=== PATIENT | male | born 1950 | race Caucasian/White ===

== ENCOUNTER 2016-04-06 20:07 | Inpatient (IN) | payer OTHER ==
[~2016-04-06] VITALS: Ht 172.7 cm; Wt 89.3 kg
[~2016-04-06 20:07] MED LIST: COMBIVENT RESPIM4 GM IH; DUONEB 2.5-0.5 M3 ML AEROSOL; HUMALOG100 UNIT/1 SC; LANTUS 10100 UNITS/ SC; LO-DOSE ASPIRIN81 M2 PO; LOPRESSOR50 MG PO; PRAVACHOL40 MG PO; QVAR 40 MCG IN7.3 GM IH; SINGULAIR10 MG PO; TRAZODONE HCL50 MG PO; XARELTO15 MG PO
[2016-04-06 21:52] LABS: HEMATOCRIT 45.1 % (38.0-50.0); MCV 93.8 FL (86-99); MEAN PLAT.VOLUME 9.5 uM^3 (9.0-12.4); PLATELET COUNT 212 K/uL (156-360); RBC DIS.WIDTH-CV 13.2 % (11.8-14.6); RBC DIS.WIDTH-SD 43.6 % (39-53); RED BLOOD COUNT 4.81 M/uL (4.00-5.50); WHITE BLOOD COUNT 7.3 K/uL (4.1-10.2)
[2016-04-06 22:01] LABS: CHLORIDE 110 mEq/L (99-109); POTASSIUM 4.5 mEq/L (3.7-5.4); SODIUM 143 mEq/L (136-147)
[2016-04-06 22:03] LABS: GLUCOSE 122 mg/dL (70-99)
[2016-04-06 22:04] LABS: ANION GAP 9 MEQ/L (2-14)
[2016-04-06 22:07] LABS: GFR ESTIMATE (CALCULATED) 36 mL/min/
[2016-04-06 22:08] LABS: UREA NITROGEN (BUN) 23 mg/dL (9-23)
[2016-04-06 22:13] LABS: TROP-I INTERPRETATION NEGATIVE; TROPONIN-I 0.04 ng/mL (0.0-0.30)
[2016-04-06] MEDS ORDERED: ASPERCREME 1035.4 GM TP (22:34)
[2016-04-06] MEDS ORDERED: PRILOSEC20 MG PO (22:34)
[2016-04-06] MEDS ORDERED: LEVAQUIN750 MG PO (22:36)
[2016-04-07 04:51] VITALS: BP 126/64
[2016-04-07 05:14] LABS: TROP-I INTERPRETATION NEGATIVE
[2016-04-07 08:49] VITALS: BP 140/74
[2016-04-07 10:52] LABS: TROP-I INTERPRETATION NEGATIVE
[2016-04-07 11:30] VITALS: BP 151/75
[2016-04-07 12:08] LABS: POINT-OF-CARE METER ID UU13113831
[2016-04-07 15:16] VITALS: BP 158/61
[2016-04-07 20:00] VITALS: BP 178/84
[2016-04-08 00:50] VITALS: BP 156/70
[2016-04-08 07:14] VITALS: BP 154/72
[2016-04-08 07:47] VITALS: BP 152/72
[2016-04-08 08:39] LABS: POINT-OF-CARE METER ID UU13113831
[2016-04-08 11:29] VITALS: BP 139/81
[2016-04-08 12:28] LABS: POINT-OF-CARE METER ID UU13113831
[2016-04-08 21:25] VITALS: BP 129/67
[2016-04-09 00:40] VITALS: BP 108/63
[2016-04-09 05:37] VITALS: BP 122/65
[2016-04-09 06:59] LABS: INTER. NORMALIZED RATIO 1.1; PROTHROMBIN TIME 10.9 (9.2-11.2); PTT 28.1 (25-32)
[2016-04-09 07:53] LABS: POINT-OF-CARE METER ID UU13113781
[2016-04-09 09:00] VITALS: BP 119/66
[2016-04-09 09:13] LABS: EOSINOPHIL (%) 1.1 % (0-5); EOSINOPHIL COUNT 0.1 K/uL (0-0.3); HEMATOCRIT 41.3 % (38.0-50.0); IMMATURE GRANULOCYTE (%) 0.4 % (0.0-0.7); LYMPHOCYTE COUNT 1.6 K/uL (1.0-2.8); MCH 30.6 PG (29.0-34.0); MCHC 32.7 G/DL (30.0-36.0); MCV 93.7 FL (86-99); MONOCYTE (%) 7.4 % (3-12); MONOCYTE COUNT 0.7 K/uL (0-0.8); NEUTROPHIL (%) 73.1 % (45-76); NEUTROPHIL COUNT 6.7 K/uL (1.8-6.4); PLATELET COUNT 208 K/uL (156-360); RBC DIS.WIDTH-CV 13.2 % (11.8-14.6); RBC DIS.WIDTH-SD 45.4 % (39-53); RED BLOOD COUNT 4.41 M/uL (4.00-5.50); WHITE BLOOD COUNT 9.2 K/uL (4.1-10.2)
[2016-04-09 09:24] LABS: ANION GAP 6 MEQ/L (2-14); CHLORIDE 107 MEQ/L (99-109); GFR ESTIMATE (CALCULATED) 38 mL/min/; POTASSIUM 4.5 MEQ/L (3.7-5.4); SAMPLE HEMOLYSIS CHECK 0; SAMPLE ICTERIC CHECK 0; SAMPLE LIPEMIA CHECK 0; SODIUM 138 MEQ/L (136-147); UREA NITROGEN (BUN) 25 mg/dL (9-23)
[2016-04-09 09:34] LABS: GLUCOSE 225 mg/dL (70-99)
[2016-04-09 10:57] LABS: POINT-OF-CARE METER ID UU13113781
[2016-04-09 11:58] LABS: IRON 101 MCG/DL (35-150)
[2016-04-09 12:00] VITALS: BP 130/75
[2016-04-09 13:06] LABS: FERRITIN 86 NG/ML (22-322)
[2016-04-09 18:46] LABS: INTER. NORMALIZED RATIO 1.1; PROTHROMBIN TIME 11.1 (9.2-11.2); PTT 49.2 (25-32)
[2016-04-09 19:22] VITALS: BP 142/77
[2016-04-09 21:11] LABS: POINT-OF-CARE METER ID UU13113781
[2016-04-09 23:51] VITALS: BP 151/75
[2016-04-10] VITALS (9 sets, daily range): BP systolic 128–160; BP diastolic 65–96
[2016-04-10 06:39] LABS: EOSINOPHIL (%) 2.1 % (0-5); EOSINOPHIL COUNT 0.2 K/uL (0-0.3); HEMATOCRIT 44.2 % (38.0-50.0); IMMATURE GRANULOCYTE (%) 0.8 % (0.0-0.7); IMMATURE GRANULOCYTE COUNT 0.1 K/uL; LYMPHOCYTE COUNT 1.9 K/uL (1.0-2.8); MCH 30.3 PG (29.0-34.0); MCHC 32.1 G/DL (30.0-36.0); MCV 94.4 FL (86-99); MEAN PLAT.VOLUME 10.1 uM^3 (9.0-12.4); MONOCYTE (%) 6.9 % (3-12); MONOCYTE COUNT 0.6 K/uL (0-0.8); NEUTROPHIL (%) 67.4 % (45-76); NEUTROPHIL COUNT 5.7 K/uL (1.8-6.4); PLATELET COUNT 231 K/uL (156-360); RBC DIS.WIDTH-CV 13.4 % (11.8-14.6); RBC DIS.WIDTH-SD 46.3 % (39-53); RED BLOOD COUNT 4.68 M/uL (4.00-5.50); WHITE BLOOD COUNT 8.4 K/uL (4.1-10.2)
[2016-04-10 07:43] LABS: ANION GAP 13 MEQ/L (2-14); CHLORIDE 108 MEQ/L (99-109); GFR ESTIMATE (CALCULATED) 38 mL/min/; GLUCOSE 145 mg/dL (70-99); POTASSIUM 4.3 MEQ/L (3.7-5.4); SAMPLE HEMOLYSIS CHECK 0; SAMPLE ICTERIC CHECK 0; SAMPLE LIPEMIA CHECK 0; SODIUM 142 MEQ/L (136-147); UREA NITROGEN (BUN) 24 mg/dL (9-23)
[2016-04-10 07:54] LABS: POINT-OF-CARE METER ID UU13113781
[2016-04-10 11:07] LABS: POINT-OF-CARE METER ID UU13113698
[2016-04-10 17:17] LABS: POINT-OF-CARE METER ID UU13113698
[2016-04-10 21:24] LABS: POINT-OF-CARE METER ID UU13113698
[2016-04-11 02:14] VITALS: BP 126/67
[2016-04-11 06:13] LABS: EOSINOPHIL (%) 2.6 % (0-5); EOSINOPHIL COUNT 0.2 K/uL (0-0.3); HEMATOCRIT 42.6 % (38.0-50.0); IMMATURE GRANULOCYTE (%) 0.6 % (0.0-0.7); IMMATURE GRANULOCYTE COUNT 0.1 K/uL; LYMPHOCYTE COUNT 1.3 K/uL (1.0-2.8); MCH 30.2 PG (29.0-34.0); MCHC 32.4 G/DL (30.0-36.0); MCV 93.2 FL (86-99); MEAN PLAT.VOLUME 9.7 uM^3 (9.0-12.4); MONOCYTE (%) 8.1 % (3-12); MONOCYTE COUNT 0.8 K/uL (0-0.8); NEUTROPHIL (%) 74.8 % (45-76); NEUTROPHIL COUNT 6.9 K/uL (1.8-6.4); PLATELET COUNT 208 K/uL (156-360); RBC DIS.WIDTH-CV 13.4 % (11.8-14.6); RBC DIS.WIDTH-SD 45.2 % (39-53); RED BLOOD COUNT 4.57 M/uL (4.00-5.50); WHITE BLOOD COUNT 9.3 K/uL (4.1-10.2)
[2016-04-11 06:39] LABS: ANION GAP 9 MEQ/L (2-14); CHLORIDE 106 MEQ/L (99-109); GFR ESTIMATE (CALCULATED) 40 mL/min/; GLUCOSE 179 mg/dL (70-99); POTASSIUM 4.3 MEQ/L (3.7-5.4); SAMPLE HEMOLYSIS CHECK 0; SAMPLE ICTERIC CHECK 0; SAMPLE LIPEMIA CHECK 0; SODIUM 138 MEQ/L (136-147); UREA NITROGEN (BUN) 20 mg/dL (9-23)
[2016-04-11 07:10] VITALS: BP 137/76
[2016-04-11 11:28] VITALS: BP 119/78
[2016-04-11 16:22] VITALS: BP 134/73
[2016-04-11 19:51] VITALS: BP 137/66
[2016-04-12 00:14] VITALS: BP 141/88
[2016-04-12 04:27] VITALS: BP 127/75
[2016-04-12 06:38] LABS: EOSINOPHIL (%) 2.5 % (0-5); EOSINOPHIL COUNT 0.2 K/uL (0-0.3); IMMATURE GRANULOCYTE (%) 0.9 % (0.0-0.7); IMMATURE GRANULOCYTE COUNT 0.1 K/uL; LYMPHOCYTE COUNT 1.5 K/uL (1.0-2.8); MCH 31.8 PG (29.0-34.0); MCHC 33.6 G/DL (30.0-36.0); MCV 94.6 FL (86-99); MEAN PLAT.VOLUME 10.1 uM^3 (9.0-12.4); MONOCYTE (%) 9.9 % (3-12); MONOCYTE COUNT 0.9 K/uL (0-0.8); NEUTROPHIL (%) 69.3 % (45-76); NEUTROPHIL COUNT 5.9 K/uL (1.8-6.4); PLATELET COUNT 204 K/uL (156-360); RBC DIS.WIDTH-CV 13.3 % (11.8-14.6); RBC DIS.WIDTH-SD 45.9 % (39-53); RED BLOOD COUNT 4.44 M/uL (4.00-5.50); WHITE BLOOD COUNT 8.6 K/uL (4.1-10.2)
[2016-04-12 07:00] LABS: ANION GAP 9 MEQ/L (2-14); CHLORIDE 103 MEQ/L (99-109); GFR ESTIMATE (CALCULATED) 38 mL/min/; GLUCOSE 209 mg/dL (70-99); POTASSIUM 4.3 MEQ/L (3.7-5.4); SAMPLE HEMOLYSIS CHECK 0; SAMPLE ICTERIC CHECK 0; SAMPLE LIPEMIA CHECK 0; SODIUM 139 MEQ/L (136-147); UREA NITROGEN (BUN) 27 mg/dL (9-23)
[2016-04-12 07:49] LABS: POINT-OF-CARE METER ID UU14174216
[2016-04-12 08:22] VITALS: BP 130/72
[2016-04-12 11:06] LABS: POINT-OF-CARE METER ID UU14174216
[2016-04-12 12:13] VITALS: BP 126/73
[2016-04-12] MEDS ORDERED: CLOPIDOGREL75 MG PO (13:33)
[2016-04-12] MEDS ORDERED: LOPRESSOR50 MG PO (13:34)
[2016-04-12] MEDS ORDERED: PRAMIPEXOLE D0.25 MG PO (13:35)
[2016-04-12 15:38] VITALS: BP 131/69
== END 2016-04-12 15:45 | disposition home health service (06) | DRG 247 ==
LOC: EME → EDBD 20:07 → EME 20:07 → EDOF 23:22 → 5WEST 23:22 → 4EAST 04-08 07:50 → 5WEST 04-08 16:10 → 4EAST 04-08 20:18
PROVIDERS: Emergency Medicine; Hospitalist; Internal Medicine; Internal Medicine Cardiovascular Disease; Physician Assistant
PROC: 4A023N7 Measurement of Cardiac Sampling and Pressure, Left Heart, Percutaneous Approach (ICD-10-PCS; principal; 2016-04-08)
PROC: B2111ZZ Fluoroscopy of Multiple Coronary Arteries using Low Osmolar Contrast (ICD-10-PCS; principal; 2016-04-08)
PROC: 027 Heart and Great Vessels, Dilation (ICD-10-PCS; 2016-04-10)
DX: I25.119 Atherosclerotic heart disease of native coronary artery with unspecified angina pectoris (principal); Q89.3 Situs inversus; E11.22 Type 2 diabetes mellitus with diabetic chronic kidney disease; N18.3 Chronic kidney disease, stage 3 (moderate); I48.0 Paroxysmal atrial fibrillation; I12.9 Hypertensive chronic kidney disease with stage 1 through stage 4 chronic kidney disease, or unspecified chronic kidney disease; Z79.4 Long term (current) use of insulin; K21.9 Gastro-esophageal reflux disease without esophagitis; G25.81 Restless legs syndrome; E78.5 Hyperlipidemia, unspecified; J47.9 Bronchiectasis, uncomplicated; Z87.891 Personal history of nicotine dependence; I25.2 Old myocardial infarction
CPT/HCPCS: 71020; 80048; 82728; 82948; 83540; 84466; 84484; 85025; 85027; 85347; 85610; 85730; 93005; 93306; 94640; 94640 76; 94760; 99202; 99281; 99285; C1725; C1769; C1874; C1887; C1894; G0378; J0360; J0583; J1644; J1815; J2060; J2250; J2405; J3010; J7030; J7050

== ENCOUNTER 2016-05-14 11:08 | Inpatient (IN) | payer OTHER ==
[~2016-05-14] VITALS: Ht 172.7 cm; Wt 81.7 kg
[~2016-05-14 11:08] MED LIST changes: +ASPERCREME 1035.4 GM TP; +CLOPIDOGREL75 MG PO; +LEVAQUIN750 MG PO; +PRAMIPEXOLE D0.25 MG PO; +PRILOSEC20 MG PO
[2016-05-14 12:14] LABS: HEMATOCRIT 44.4 % (38.0-50.0); MCHC 32.2 G/DL (30.0-36.0); MCV 93.3 FL (86-99); MEAN PLAT.VOLUME 9.6 uM^3 (9.0-12.4); PLATELET COUNT 265 K/uL (156-360); RBC DIS.WIDTH-CV 12.5 % (11.8-14.6); RBC DIS.WIDTH-SD 43.7 % (39-53); RED BLOOD COUNT 4.76 M/uL (4.00-5.50)
[2016-05-14 12:20] LABS: WHITE BLOOD COUNT 7.9 K/uL (4.1-10.2)
[2016-05-14 12:33] LABS: CHLORIDE 107 mEq/L (99-109); POTASSIUM 5.4 mEq/L (3.7-5.4); SODIUM 136 mEq/L (136-147)
[2016-05-14 12:35] LABS: GLUCOSE 242 mg/dL (70-99)
[2016-05-14 12:37] LABS: ANION GAP 10 MEQ/L (2-14)
[2016-05-14 12:39] LABS: GFR ESTIMATE (CALCULATED) 24 mL/min/
[2016-05-14 12:40] LABS: UREA NITROGEN (BUN) 42 mg/dL (9-23)
[2016-05-14] MEDS ORDERED: LOPRESSOR25 MG PO (14:32)
[2016-05-14] MEDS ORDERED: NOVOLOG 10100 UNITS/ SC (14:35)
[2016-05-14] MEDS ORDERED: MIRAPEX0.125 MG PO (14:38)
[2016-05-14 14:54] LABS: HEMATOCRIT 43.2 % (38.0-50.0); MCH 30.5 PG (29.0-34.0); MCHC 32.4 G/DL (30.0-36.0); MCV 94.1 FL (86-99); MEAN PLAT.VOLUME 9.7 uM^3 (9.0-12.4); PLATELET COUNT 238 K/uL (156-360); RBC DIS.WIDTH-CV 12.6 % (11.8-14.6); RBC DIS.WIDTH-SD 43.6 % (39-53); RED BLOOD COUNT 4.59 M/uL (4.00-5.50)
[2016-05-14 15:05] VITALS: BP 176/79
[2016-05-14 17:04] LABS: POINT-OF-CARE METER ID UU14162513
[2016-05-14 19:43] LABS: HEMATOCRIT 40.6 % (38.0-50.0); MCV 93.5 FL (86-99)
[2016-05-14 20:19] VITALS: BP 165/83
[2016-05-14 21:39] LABS: POINT-OF-CARE METER ID UU14162513
[2016-05-14 22:17] LABS: C DIFF TOXIN NEGATIVE (NEGATIVE)
[2016-05-14 22:18] LABS: PROBE CHECK PASS; SPECIMEN PROCESSING CONTROL PASS
[2016-05-15 00:48] VITALS: BP 147/76
[2016-05-15 03:32] VITALS: BP 150/71
[2016-05-15 06:55] LABS: MCH 30.2 PG (29.0-34.0); MCHC 32.4 G/DL (30.0-36.0); MCV 93.2 FL (86-99); MEAN PLAT.VOLUME 10.1 uM^3 (9.0-12.4); PLATELET COUNT 243 K/uL (156-360); RBC DIS.WIDTH-CV 12.7 % (11.8-14.6); RBC DIS.WIDTH-SD 43.6 % (39-53); WHITE BLOOD COUNT 9.9 K/uL (4.1-10.2)
[2016-05-15 07:18] LABS: ANION GAP 10 MEQ/L (2-14); CHLORIDE 109 MEQ/L (99-109); GFR ESTIMATE (CALCULATED) 32 mL/min/; GLUCOSE 180 mg/dL (70-99); POTASSIUM 4.4 MEQ/L (3.7-5.4); SAMPLE HEMOLYSIS CHECK 0; SAMPLE ICTERIC CHECK 0; SAMPLE LIPEMIA CHECK 0; SODIUM 139 MEQ/L (136-147); UREA NITROGEN (BUN) 32 mg/dL (9-23)
[2016-05-15 07:41] VITALS: BP 120/65
[2016-05-15 07:53] LABS: POINT-OF-CARE METER ID UU14162513
[2016-05-15 10:37] VITALS: BP 135/77
[2016-05-15 13:03] LABS: POINT-OF-CARE METER ID UU13113700
[2016-05-15 16:32] VITALS: BP 141/69
[2016-05-15 17:11] LABS: POINT-OF-CARE METER ID UU13113831
[2016-05-15 20:07] LABS: HEMATOCRIT 37.9 % (38.0-50.0); MCV 93.3 FL (86-99)
[2016-05-15 20:10] VITALS: BP 152/69
[2016-05-15 21:36] LABS: POINT-OF-CARE METER ID UU14162513
[2016-05-16] VITALS (7 sets, daily range): BP systolic 137–175; BP diastolic 60–80
[2016-05-16 08:30] LABS: POINT-OF-CARE METER ID UU14162513
[2016-05-16 09:40] LABS: ANION GAP 10 MEQ/L (2-14); CHLORIDE 107 MEQ/L (99-109); GFR ESTIMATE (CALCULATED) 29 mL/min/; GLUCOSE 208 mg/dL (70-99); POTASSIUM 4.9 MEQ/L (3.7-5.4); SAMPLE HEMOLYSIS CHECK 0; SAMPLE ICTERIC CHECK 0; SAMPLE LIPEMIA CHECK 0; SODIUM 141 MEQ/L (136-147); UREA NITROGEN (BUN) 25 mg/dL (9-23)
[2016-05-16 10:07] LABS: MCV 94.1 FL (86-99)
[2016-05-16 12:12] LABS: POINT-OF-CARE METER ID UU13113831
[2016-05-16 17:29] LABS: POINT-OF-CARE METER ID UU13113831
[2016-05-16 19:36] LABS: MCV 93.4 FL (86-99)
[2016-05-17 05:27] VITALS: BP 126/59
[2016-05-17 09:00] VITALS: BP 107/73
[2016-05-17 09:27] LABS: HEMATOCRIT 44.7 % (38.0-50.0); MCV 92.2 FL (86-99)
[2016-05-17 12:00] VITALS: BP 147/74
[2016-05-17 16:00] VITALS: BP 140/73
[2016-05-17 20:03] LABS: POINT-OF-CARE METER ID UU13113698
[2016-05-17 20:20] VITALS: BP 147/75
[2016-05-17 20:20] LABS: MCV 91.8 FL (86-99)
[2016-05-17 23:32] VITALS: BP 123/60
[2016-05-18 04:37] VITALS: BP 126/69
[2016-05-18 06:41] LABS: HEMATOCRIT 43.1 % (38.0-50.0); MCHC 32.5 G/DL (30.0-36.0); MCV 92.3 FL (86-99); MEAN PLAT.VOLUME 9.5 uM^3 (9.0-12.4); PLATELET COUNT 265 K/uL (156-360); RBC DIS.WIDTH-CV 12.7 % (11.8-14.6); RBC DIS.WIDTH-SD 42.9 % (39-53); RED BLOOD COUNT 4.67 M/uL (4.00-5.50); WHITE BLOOD COUNT 9.5 K/uL (4.1-10.2)
[2016-05-18 07:08] LABS: ANION GAP 11 MEQ/L (2-14); CHLORIDE 104 MEQ/L (99-109); GFR ESTIMATE (CALCULATED) 30 mL/min/; GLUCOSE 133 mg/dL (70-99); POTASSIUM 4.4 MEQ/L (3.7-5.4); SAMPLE HEMOLYSIS CHECK 0; SAMPLE ICTERIC CHECK 0; SAMPLE LIPEMIA CHECK 0; SODIUM 139 MEQ/L (136-147); UREA NITROGEN (BUN) 25 mg/dL (9-23)
[2016-05-18 07:55] VITALS: BP 132/76
[2016-05-18 08:01] LABS: POINT-OF-CARE METER ID UU13113698
[2016-05-18 11:11] LABS: POINT-OF-CARE METER ID UU13113698
[2016-05-18 12:55] VITALS: BP 127/76
[2016-05-18 18:10] VITALS: BP 166/77
[2016-05-18 20:27] VITALS: BP 118/64
[2016-05-18 21:09] LABS: POINT-OF-CARE METER ID UU13113698
[2016-05-19 00:06] VITALS: BP 131/62
[2016-05-19 04:02] VITALS: BP 131/71
[2016-05-19 07:39] LABS: POINT-OF-CARE USER ID NUTSLF44
[2016-05-19 08:39] VITALS: BP 138/68
[2016-05-19 12:08] VITALS: BP 147/78
[2016-05-19 12:20] LABS: POINT-OF-CARE USER ID NUTSLF44
[2016-05-19] MEDS ORDERED: DOCUSATE SODIU100 MG PO (14:50)
[2016-05-19] MEDS ORDERED: HEMMOREX-HC25 MG PR (15:07)
== END 2016-05-19 15:39 | disposition home health service (06) | DRG 378 ==
LOC: EME 11:08 → EDOF 14:12 → 5WEST 14:12 → EDOF 14:12 → 5WEST 15:02 → 4EAST 05-15 10:06 → 5WEST 05-15 10:06 → 4EAST 05-16 22:20
PROVIDERS: Hospitalist; Internal Medicine; Internal Medicine Gastroenterology; Nurse Practitioner Adult Health
PROC: 0DJD8ZZ Inspection of Lower Intestinal Tract, Via Natural or Artificial Opening Endoscopic (ICD-10-PCS; principal; 2016-05-18)
DX: K92.2 Gastrointestinal hemorrhage, unspecified (principal); Q89.3 Situs inversus; K64.8 Other hemorrhoids; I48.91 Unspecified atrial fibrillation; I25.10 Atherosclerotic heart disease of native coronary artery without angina pectoris; K92.1 Melena; E11.9 Type 2 diabetes mellitus without complications; I12.9 Hypertensive chronic kidney disease with stage 1 through stage 4 chronic kidney disease, or unspecified chronic kidney disease; N18.3 Chronic kidney disease, stage 3 (moderate); E78.5 Hyperlipidemia, unspecified; K21.9 Gastro-esophageal reflux disease without esophagitis; R94.31 Abnormal electrocardiogram [ECG] [EKG]; Z95.5 Presence of coronary angioplasty implant and graft; I25.2 Old myocardial infarction; Z79.01 Long term (current) use of anticoagulants; Z79.4 Long term (current) use of insulin
CPT/HCPCS: 74176; 80048; 80069; 82948; 85014; 85018; 85027; 86850; 86900; 86901; 87493; 87506; 93005; 94640; 94640 76; 94760; 99202; 99281; 99284; G0378; J1815; J7030